=== PATIENT | female | born 1965 | race Caucasian/White ===

== ENCOUNTER 2022-03-04 14:22 | Emergency (ER) | payer OTHER, SELFPAY ==
--- NOTE | ~2022-03-04 | XR_ITS ---
EXAMINATION: XR abdomen obstructive series DATE: 03/04/2022 15:10 INDICATION: Constipation. TECHNIQUE: Upright and supine views of the abdomen on 3 radiographs were obtained. COMPARISON: None. FINDINGS: There are no dilated loops of bowel. There is a large volume of stool in the colon. No free intraperitoneal gas. Calcifications in the pelvis are likely phleboliths. IMPRESSION: 1. Nonobstructive bowel gas pattern. Reviewed, dictated and finalized at location A.
[2022-03-04 14:34] VITALS: BP 119/76; PULSE 86; RESP 18; TEMP 36.1; O2SAT 100
--- NOTE | 2022-03-04 14:49 | ED.ABDPAIN ---
HPI - Abdominal Pain General Chief Complaint: Abdominal Pain Stated Complaint: constipation Time Seen by Provider: 03/04/22 14:49 Source: patient Mode of arrival: ambulatory Limitations: no limitations History of Present Illness HPI narrative: 56-year-old female presents with complaint of constipation. Reports abdominal Lower cramping, bloating since yesterday were unable to have a bowel movement. reports that she had a small bowel movement 3 days ago, but really has not had a bowel movement for 9 days. states does not normally have normal bowel routine but feeling more constipated than usual. Was on recent road trip. No urinary symptoms. No fever chills. No nausea vomiting. All systems reviewed and negative except as noted above. Related Data Home Medications Medication Instructions Recorded Confirmed atorvastatin 10 mg tablet 10 mg DAILY 03/04/22 03/04/22 calcium carbonate 500 mg-vitamin 1 tablet DAILY 03/04/22 03/04/22 D3 5 mcg (200 unit) tablet (Oyster Shell Calcium-Vitamin D3) estradiol 0.5 mg tablet 0.5 mg DAILY 03/04/22 03/04/22 famotidine 40 mg tablet 40 mg DAILY 03/04/22 03/04/22 folic acid 1 mg tablet 1 mg DAILY 03/04/22 03/04/22 hydroxychloroquine 200 mg tablet 200 mg PO BID 03/04/22 03/04/22 levothyroxine 50 mcg tablet 50 mcg DAILY 03/04/22 03/04/22 (Synthroid) methotrexate sodium 2.5 mg tablet 1.25 mg DAILY 03/04/22 03/04/22 metoprolol succinate 25 mg 12.5 mg PO DAILY 03/04/22 03/04/22 tablet,extended release 24 hr progesterone micronized 100 mg 100 mg DAILY 03/04/22 03/04/22 capsule solifenacin 10 mg tablet (Vesicare) 10 mg PO DAILY 03/04/22 03/04/22 topiramate 25 mg tablet 25 mg DAILY 03/04/22 03/04/22 venlafaxine 37.5 mg 37.5 mg PO DAILY 03/04/22 03/04/22 capsule,extended release 24 hr Allergies Allergy/AdvReac Type Severity Reaction Status Date / Time sulfamethizole Allergy Unknown Rash Verified 03/04/22 14:51 trimethoprim Allergy Unknown Rash Verified 03/04/22 14:51 Review of Systems Review of Systems: CONSTITUTIONAL: Denies fever, chills, or sweats. EYES: Denies visual changes, redness, or discharge. ENT: Denies rhinorrhea, congestion, sore throat, or otalgia. CARDIOVASCULAR: Denies chest pain, palpitations, or edema. RESPIRATORY: Denies cough or dyspnea. GASTROINTESTINAL: Denies abdominal pain, Constipation. Denies nausea, vomiting, or diarrhea. GENITOURINARY: Denies dysuria or hematuria. SKIN: Denies rash or itching. MUSCULOSKELETAL: Denies back pain, joint pain, or myalgia. NEUROLOGIC: Denies headache, numbness, or weakness. PSYCHIATRIC: Denies anxiety or depression. All other systems reviewed are negative, except as documented in HPI. [facility] Family History Family History (Updated 08/07/16 @ 23:56 by DOCTOR UNKNOWN) Father Family history of premature coronary heart disease, Onset Age: 57 Patient's father is Mother Hypertension Family history of elevated blood lipids Sibling Family history of malignant melanoma Social History Social History Smoking status: Never smoker Alcohol intake: never Comments At time of signature, agree with nursing past medical, surgical, social and family history. There is no relevant family history pertinent to the presenting complaint. Exam Narrative: GENERAL: This is a well-nourished, well-developed patient, in no apparent distress. HEAD: normocephalic, atraumatic. EYES: PERRL. Sclera clear/white. Vision is grossly intact. EARS: External ears normal NOSE: External nose normal NECK: Neck supple, non-tender without lymphadenopathy, masses or thyromegaly. CARDIOVASCULAR: Regular rate and rhythm without murmurs, gallops, or rubs. RESPIRATORY: Clear to auscultation. Breath sounds equal bilaterally. No wheezes, rales, or rhonchi. GASTROINTESTINAL: Abdomen soft, non-tender, nondistended. Bowel sounds are hypoactive. No hepato-splenomegaly, or palpable masses. No guarding. SKIN: warm, Dry, int
== END 2022-03-04 15:23 | disposition home or self-care (01) ==
PROVIDERS: Emergency Provider Nurse Practitioner Family
DX: K59.00 Constipation, unspecified (principal)
CPT/HCPCS: 74019; 99203; G0463